=== PATIENT | male | born 1955 | race Caucasian/White ===

== ENCOUNTER → 2017-09-13 | Outpatient (CLI) | payer MEDICARE, BC ==
[2016-10-21 09:53] VITALS: BMI 35.0
[~2017-09-13] MED LIST: AMOX-559 PO; ASP325 PO; ASPI-757 PO; BACDS PO; BENZ100C26 PO; CARV12.578 PO; CEFU250 PO; CEP500 PO; CIP500 PO; CIPR-214 PO; CIPRO EYE; CLI150 PO; CLIN-75 PO; CYCL10TA29 PO; DEXL60CA6 PO; DIA5 PO; DIAZ-1 PO; DILT180C73 PO; DILT60CA5 PO; FERR325T14 PO; FLUT16SP20 NS; FURO20TA19 PO; GUALA600 PO; HYDR-4309 PO; HYDR12.556 PO; HYDR25TA66 PO; HYPR15DR23 OP; IBUP800T37 PO; IVIG IV; LEVO750T11 PO; LID5T TD; LIDO700A29 TD; LISI1TAB86 PO; LISI20TA29 PO; LOR1 PO; LOR10/500 PO; LOR5/325 PO; LORA-1458 PO; LOT15T TOP; METR-1 PO; MOMR ENA; MORP-23 PO; MORP60TA51 PO; MORS60 PO; MULT-923 PO; OMEP-218 PO; ONDA4TAB PO; OSE75 PO; OXYC-528 PO; OXYC-854 PO; OXYC5TAB38 PO; OXYGEN INH; PAN40 PO; PANT40SU3 PO; PANT40TA65 PO; PEG15DRO5 OP; POTA20PA10 PO; POTA20TA85 PO; PRE10 PO; PRE20 PO; PRED-1 PO; PRED20TA6 PO; SIMV-44 PO; SIMV5TAB56 PO; SUCR1TAB51 PO; SUCR1TAB85 PO; TEST200V IM; VALA100062 PO; [UNRECOGNIZED DRUG - CODE] MC; [UNRECOGNIZED DRUG - CODE] PO; [UNRECOGNIZED DRUG - OTHER]
--- NOTE | 2017-09-13 11:08 | RADIOLOGY IMAGING REPORT ---
FACILITY: [facility] - [place] PATIENT NAME: Marcell Abel : 1955 MR: [id number] V: [id number] EXAM DATE: ORDERING PHYSICIAN: EVANGELINA PARRA TECHNOLOGIST: Location: [facility] Patient: Mracell Abel : 1955 Visit/Account:[id number] Date of Sevice: 09/13/2017 Exam type: CERVICAL SPINE 2 OR 3 VIEW History: Chronic pain syndrome Comparison: . Findings: There is mild disc space narrowing at C4-5 with small anterior syndesmophyte. There is moderate disc space narrowing with small anterior osteophytes at C5-6 and C6-7. There is no demonstration of acute fractures or subluxations or prevertebral soft tissue swelling. IMPRESSION: 1. Spondylotic changes from C4 to C7 although no evidence of acute fractures or subluxations. If pa tient's symptoms persist MR may be helpful Report Dictated By: Louise Odonnell MD at 09/13/2017 11:00 AM Report E-Signed By: Louise Odonnell MD at 09/13/2017 11:04 AM WSN:[email or web address]
== END ==
LOC: RAD 10:12
PROVIDERS: ATTEND Family Medicine
DX: M47.892 Other spondylosis, cervical region (principal)
CPT/HCPCS: 72040

== ENCOUNTER 2017-10-03 16:32 | Emergency (ER) | payer MEDICARE, BC ==
[2016-10-21 09:53] VITALS: Ht 167.6 cm; Wt 99.8 kg
[~2017-10-03] VITALS: Ht 167.6 cm; Wt 99.8 kg
[~2017-10-03 16:32] MED LIST changes: +FERR-53 PO; -FERR325T14 PO
--- NOTE | 2017-10-03 16:42 | ER Report ---
History and Physical Time Seen By MD: 16:41 HPI/ROS CHIEF COMPLAINT: Right hip pain HISTORY OF PRESENT ILLNESS: This is a 62-year-old male who presents to the emergency department for right hip pain. Patient states that out 4 days ago he was twisting and began to fall and felt his right hip dislocate he did however catch himself before he fell to the ground and then he stated that hip did reduce on its own. He's had some pain since then. Then 2 days ago he began using a walker to help with his ambulation then today he said that once again he twisted and felt his right hip dislocate it did however reduce again. Patient states that today's pain is worse than it has been and he is not sure if something is happened to the ligaments or what's going on. Patient decided come in for further evaluation. Patient states he does have known hip "problems " as well as "spinal problems". Patient does have numbness and tingling to the right leg however this is normal for him. Patient denies nausea, vomiting, diarrhea, aches, chills, headaches or urinary symptoms. REVIEW OF SYSTEMS: Constitutional: No fever, no chills. Eyes: No discharge. ENT: No sore throat. Cardiovascular: No chest pain, no palpitations. Respiratory: No cough, no shortness of breath. Gastrointestinal: No abdominal pain, no vomiting. Genitourinary: No hematuria. Musculoskeletal: As above. Skin: No rashes. Neurological: No headache. Allergies: Coded Allergies: No Known Drug Allergies (Unverified , 10/03/17) Home Meds Active Scripts Pantoprazole Sodium (PANTOPRAZOLE SODIUM) 40 Mg Tablet., 40 MG PO BID, #60 TAB Prov:LILA HUSSEIN MD 10/25/16 Reported Medications Hydralazine Hcl (HYDRALAZINE HCL) 25 Mg Tablet, 1 TAB PO TID, #90 10/25/16 Lidocaine (LIDOCAINE) 700 Mg Adh..patch, 1-2 PACK TD QDAY Y for PAIN, #30 10/25/16 Carvedilol (CARVEDILOL) 12.5 Mg Tablet, 12.5 MG PO BID, TAB 02/19/16 Testosterone Cypionate (TESTOSTERONE CYPIONATE) 200 Mg/1 Ml Vial, 200 MG IM EVERY OTHER WK, VIAL 02/19/16 Sucralfate (CARAFATE) 1 Gm Tablet, 2 TAB PO ACHS1, #28 TAB 07/24/14 Mometasone Furoate (NASONEX) 17 Gm [place], 2 PUFF PAUL BID, SPRAY 07/23/14 Lisinopril (LISINOPRIL) 20 Mg Tablet, 20 MG PO DAILY 11/10/13 Diltiazem Hcl (DILT-CD) 240 Mg Cap.er.24h, 240 MG PO QDAY 11/10/13 Furosemide (LASIX) 20 Mg Tablet, 20 MG PO QDAY 11/08/13 Betamethasone/Clotrimazole (Lotrisone) 15 Gm Cr, 0 TOP Q12H Y for DISCOMFORT APPLY TO AFFECTED AREAS 12/22/12 [Ivig] No Conflict Check, 1 EA IV [id number] 07/09/12 Multivitamins W-Minerals (Multiple Vitamins 55 Plus) 1 Tab Tablet, 1 TAB PO DAILY 07/09/12 Oxycodone Hcl/Acetaminophen (Endocet 10-325 Mg Tablet) 1 Tab Tablet, 2 TAB PO Q6 -8H Y 07/09/12 Oxygen (Oxygen) 2 L Inha, 3 L INH DAILY 05/08/12 Morphine Sulfate (Ms Contin) 60 Mg Tabsr, 120 MG PO Q12H, 0 Refills 08/11/11 Potassium Chloride (Klor-Con M20) 20 Meq Tab.prt.sr, 1 TAB PO BID, 0 Refills 08/11/11 Discontinued Reported Medications Lorazepam (LORAZEPAM) 1 Mg Tab, 1 TAB PO BID, TAB 11/10/13 Discontinued Scripts Sucralfate (SUCRALFATE) 1 Gm Tablet, 1 GM PO ACHS1, #120 TAB Prov:LILA HUSSEIN MD 10/25/16 Oseltamivir Phosphate (TAMIFLU) 75 Mg Cap, 75 MG PO DAILY, #5 CAP Prov:LILA HUSSEIN MD 10/25/16 Clindamycin Hcl (CLINDAMYCIN HCL) 150 Mg Capsule, 600 MG PO Q8H, #21 CAPSULE Prov:LILA HUSSEIN MD 10/25/16 Benzonatate (BENZONATATE) 100 Mg Capsule, 200 MG PO TID Y for COUGH, #30 CAPSULE Prov:LILA HUSSEIN MD 10/25/16 Hydrochlorothiazide (HYDROCHLOROTHIAZIDE) 12.5 Mg Capsule, 1 TAB PO DAILY, #30 CAPSULE TAKE ONE CAPSULE BY MOUTH EVERY DAY Prov:LILA HUSSEIN MD 10/25/16 Past Medical/Surgical History Patient has a past medical and surgical history of CHF, tachycardia, arrhythmias , DVTs, hypertension, granulomas, continuous oxygen 4 L nasal cannula, pneumonia , hiatal hernia, epididymitis, right kidney benign mass, prostatitis, degenerative joint disease, sciatica, multiple back injections, arthritis, osteoporosis, spine injuries, bilateral knee replacements, right wrist injury, carpal tunnel, compression fractures, iritis, cardiac catheterization, vasectomy , tonsillectomy. Reviewed Nurses Notes: Yes Hx Smoking: No Smoking Status: Never Smoker Exposure to Second Hand Smoke?: No Hx Substance Use Disorder: No Hx Alcohol Use: No Constitutional Vital Sign - Last 24 Hours 10/03/17 10/03/17 10/03/17 10/03/17 16:39 16:42 17:17 17:47 Temp 98.3 Pulse 70 64 61 Resp 18 B/P (MAP) 135/68 (90) 135/68 Pulse Ox 97 97 97 O2 Delivery Nasal Cannula 10/03/17 10/03/17 10/03/17 10/03/17 18:00 18:02 18:45 19:00 Pulse 63 62 61 B/P (MAP) 118/57 (77) 138/65 (89) Pulse Ox 100 99 98 10/03/17 10/03/17 19:15 19:30 Pulse 60 60 B/P (MAP) 156/78 (104) Pulse Ox 97 99 Physical Exam General Appearance: The patient is alert, has no immediate need for airway protection and no signs of toxicity. Eyes: Pupils equal and round no pallor or injection. ENT, Mouth: Mucous membranes are moist. Respiratory: There are no retractions, lungs are dim but clear to auscultation. Cardiovascular: Regular rate and rhythm, no murmurs, clicks or rubs. Gastrointestinal: Abdomen is soft and non tender, no masses, bowel sounds normal. Neurological: Alert and oriented 4. Moving all extremities. Following all commands. No focal neuro deficit. Skin: Warm and dry, no rashes. Musculoskeletal: Neck is supple non tender. Extremities no obvious deformity to the right hip. Pain to the entire right hip with palpation. Able to lift the left leg off the gurney, able to flex and extend the hip, but increases pain. DIFFERENTIAL DIAGNOSIS: After history and physical exam differential diagnosis was considered for right hip pain, right hip dislocation, right femoral neck fracture, right pelvis fracture. Medical Decision Making EKG/Imaging Imaging PATIENT NAME: Marcell Abel : 1955 MR: [id number] V: [id number] EXAM DATE: ORDERING PHYSICIAN: JUAN BREWER TECHNOLOGIST: [place] [facility] [place] Marcell Abel : 1955 Visit/Account:[id number] Date of Sevice: 10/03/2017 Exam type: HIP RIGHT History: hip pain, possible dislocation Comparison: None. Findings: There is mild narrowing of the right hip joint. There is no evidence of acute fracture or dislocation. No lytic or blastic bone lesion identified. Incidentally noted are spondylotic changes of the visualized lower thoracic spine and mild degenerative changes at the left hip joint IMPRESSION: 1. Mild degenerative changes of both hip joints Spondylotic changes lower lumbar spine Report Dictated By: Louise Odonnell MD at 10/03/2017 5:48 PM Report E-Signed By: Louise Odonnell MD at 10/03/2017 5:50 PM WSN:[email or web address] PATIENT NAME: Marcell Abel : 1955 MR: [id number] V: [id number] EXAM DATE: ORDERING PHYSICIAN: JUAN BREWER TECHNOLOGIST: [place] [facility] [place]: Marcell Abel : 1955 Visit/Account:[id number] Date of Sevice: 10/03/2017 INDICATION: pain, evaluate for fx. DATE: 10/03/2017 7:17 PM. TECHNIQUE: HIP RIGHT W/O CONTRAST. Noncontrast axial CT imaging was performed through the right hip with sagittal and coronal reformats. One of the following dose optimization techniques was utilized in the performance of this exam: Automated exposure control; adjustment of the mA and/or kV according to the patient's size; or use of an iterative reconstruction technique. Specific details can be referenced in the facility's radiology CT exam operational policy. COMPARISON: Hip radiographs of the same day. FINDINGS: There is no fracture or dislocation at the right hip. Moderate degenerative findings with subchondral cystic change and sclerosis of the acetabulum, most notable along the lateral margin of the roof. The imaged portion of the pelvis is intact. Degenerative findings are severe at the L5-S1 facets as well as the L5-S1 disc space. The bladder is distended. Soft tissues are unremarkable. IMPRESSION: No fracture or dislocation at the right hip. Report Dictated By: Nikki Storey MD at 10/03/2017 7:17 PM Report E-Signed By: Nikki Storey MD at 10/03/2017 7:21 PM WSN:[id number] ED Course/Re-evaluation ED Course The patient was admitted to room. A history and physical were obtained. Differential diagnoses were considered. Right hip x-ray showing mild degenerative changes of both hip joints. CT of the right hip showing no fractures or dislocations of the hip moderate degenerative findings. I did review these results with the patient he was relieved that there was no fracture. I also instructed the patient follow-up with his primary care provider tomorrow to try to get outpatient MRI of his right hip. Patient was also encouraged to take his home medications as scheduled. Patient had no other questions or concerns at this time and was discharged home. Decision to Disposition Date: Oct 03, 2017 Decision to Disposition Time: 19:44 Depart Departure Latest Vital Signs Vital Signs Date Time Temp Pulse Resp B/P (MAP) Pulse Ox O2 Delivery O2 Flow Rate FiO2 10/03/17 19:30 60 156/78 (104) 99 10/03/17 16:42 98.3 18 Nasal Cannula Impression: Primary Impression: Right hip pain Condition: Condition Unchanged Disposition: HOME OR SELF-CARE Referrals: EVANGELINA PARRA MD (PCP) 1 Day Patient Instructions: Hip Pain (ED) Additional Instructions: Drink plenty of water. Get plenty of rest. Continue taking your current medications. Call Dr. Parra tomorrow morning to see if a can schedule an outpatient MRI for your right hip. You can alternate ice and heat for the discomfort. May return to the emergency department for any other concerns or worsening symptoms. JUAN BREWER [employer]ER-BC Oct 03, 2017 16:42
--- NOTE | 2017-10-03 17:54 | RADIOLOGY IMAGING REPORT ---
FACILITY: [facility] [place]IENT NAME: Marcell Abel : 1955 MR: [id number] V: [id number] EXAM DATE: ORDERING PHYSICIAN: JUAN BREWER TECHNOLOGIST: Location: [facility] Patient: Marcell Abel : 1955 Visit/Account:[id number] Date of Sevice: 10/03/2017 Exam type: HIP RIGHT History: hip pain, possible dislocation Comparison: None. Findings: There is mild narrowing of the right hip joint. There is no evidence of acute fracture or dislocatio n. No lytic or blastic bone lesion identified. Incidentally noted are spondylotic changes of the vi sualized lower thoracic spine and mild degenerative changes at the left hip joint IMPRESSION: 1. Mild degenerative changes of both hip joints Spondylotic changes lower lumbar spine Report Dictated By: Louise Odonnell MD at 10/03/2017 5:48 PM Report E-Signed By: Louise Odonnell MD at 10/03/2017 5:50 PM WSN:[email or web address]
--- NOTE | 2017-10-03 19:26 | RADIOLOGY IMAGING REPORT ---
FACILITY: [facility] PATIENT NAME: Marcell Abel : 1955 MR: [id number] V: [id number] EXAM DATE: ORDERING PHYSICIAN: JUAN BREWER TECHNOLOGIST: [place] [facility] [place] Patient: Marcell Abel : 1955 Visit/Account:[id number] Date of Sevice: 10/03/2017 INDICATION: pain, evaluate for fx. DATE: 10/03/2017 7:17 PM. TECHNIQUE: HIP RIGHT W/O CONTRAST. Noncontrast axial CT imaging was performed through the right hip w ith sagittal and coronal reformats. One of the following dose optimization techniques was utilized in the performance of this exam: Automated exposure control; adjustment of the mA and/or kV according t o the patient's size; or use of an iterative reconstruction technique. Specific details can be refe renced in the facility's radiology CT exam operational policy. COMPARISON: Hip radiographs of the same day. FINDINGS: There is no fracture or dislocation at the right hip. Moderate degenerative findings with s ubchondral cystic change and sclerosis of the acetabulum, most notable along the lateral margin of th e roof. The imaged portion of the pelvis is intact. Degenerative findings are severe at the L5-S1 fac ets as well as the L5-S1 disc space. The bladder is distended. Soft tissues are unremarkable. IMPRESSION: No fracture or dislocation at the right hip. Report Dictated By: Nikki Storey MD at 10/03/2017 7:17 PM Report E-Signed By: Nikki Storey MD at 10/03/2017 7:21 PM WSN:[id number]
[2017-10-03 19:30] VITALS: BP 156/78
== END 2017-10-03 19:53 | disposition home or self-care (01) ==
LOC: ER 16:47
DX: M25.551 Pain in right hip (principal); W18.30XA Fall on same level, unspecified, initial encounter
CPT/HCPCS: 99282

== ENCOUNTER 2017-10-09 09:54 | Outpatient (RCR) | payer MEDICARE, BC ==
[2016-10-21 09:53] VITALS: BMI 35.0
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
--- NOTE | 2017-11-10 16:37 | PT PLAN OF CARE ---
Physician: Sathish Meek MD Patient is being seen: for examination only Therapist: Eliezer Wills, PT, DPT Medical Diagnosis: neck pain Treatment Diagnosis: same Date of Onset: 09/11/15 Date of Initial Evaluation: 10/09/17 Date patient was last seen: 10/17/17 Number of treatments: 1 Number of cancellations/No shows: 1 INTERVENTIONS: Manual Therapy/STM/MET Strengthening/condition Range of Motion Spinal Stabilization Work Hardening/Cond Stretching Neuromuscular Re-ed Closed Chain Program Posture/Body mechanics Home Exercise Program Therapeutic Activities GOALS: 2 weeks: Pt will demonstrate centralized cervical neck pain to improve function or QOL. 4 weeks: Pt will demonstrate full cervical AROM in all directions to improve function and QOL. 6 weeks: Pt will demonstrate full cervical AROM in all directions with normal end feels to improve function and QOL. PATIENT'S GOAL: improve neck pain and mobility Status of Patient's Goals: Unknown Patient Compliance: Poor Prognosis: Excellent Reasons for discontinuing therapy: This is a discharge note for Marcell Abel. He demonstrated a positive prognosis during the examination, however, he no showed his follow up visit and will not return calls. As a result , he will be discharged from PT. Posture: He demonstrates B rounded shoulders, thoracic kyphosis, and decreased lumbar lordosis. ROM: Cervical AROM: protrusion: major loss of motion with pain, retraction: major loss of motion with pain, lateral flexion R: major loss of motion with pain, extension: moderate loss of motion with pain, lateral flexion L: moderate loss of motion with pain, rotation R and L: moderate loss of motion with pain, flexion: NIL of movement with pain. Strength: Myotones: C2-T1: Intact; equal bilaterally Palpation: TTP: occiput to C7 on spinous process, on facet processes, and UT ( radiating pain). Special Tests: Repeated RET: pain symptoms during the test and worse following the test. Repeated flexion: pain symptoms during the test and same following the test. Repeated EXT: pain symptoms during the test and better (centralizing ) following the test. Repeated RET EXT: pain symptoms during testing and worse following. If you have any questions, please contact to me at [phone]. Thank you, Eliezer Wills, PT, DPT [facility]
== END 2017-10-09 18:00 | disposition home or self-care (01) ==
LOC: PT 09:54
PROVIDERS: ATTEND Family Medicine
DX: M54.2 Cervicalgia (principal); R51 Headache; R20.2 Paresthesia of skin
CPT/HCPCS: 97162

== ENCOUNTER → 2017-10-13 | Outpatient (CLI) | payer MEDICARE, BC ==
[2016-10-21 09:53] VITALS: BMI 35.0
--- NOTE | 2017-10-13 12:23 | RADIOLOGY IMAGING REPORT ---
FACILITY: [facility] PATIENT NAME: Marcell Abel : 1955 MR: [id number] V: [id number] EXAM DATE: ORDERING PHYSICIAN: EVANGELINA PARRA TECHNOLOGIST: Location: [facility] - [place] Patient: Marcell Abel : 1955 Visit/Account:[id number] Date of Sevice: 10/13/2017 MRI pelvis and left hip Indication: Hip pain. Recent injury. Comparison: Exam is reviewed in conjunction with today's right hip MRI. Technique: Coronal T1-weighted, STIR, proton density, axial STIR were obtained through the whole pelv is. Sagittal and coronal proton density fat-saturated images were obtained through the left hip as we ll. Findings: With respect to the proximal femora, there is no evidence of proximal femur fracture, stress reaction or avascular necrosis. There are suspected scattered islands of red marrow involving the proximal fe ambriz, the bony pelvis and sacrum. No marrow infiltrating lesion of the pelvis or sacrum. There is ext ensive degenerative disc disease of the low lumbar spine most severe at L5-S1. This is incompletely e valuated. The larger [id number]-[id number] images demonstrate symmetric bilateral hip joint osteoarthritis of moderate severity. No significant hip joint effusion. Dedicated smaller [id number]-[id number]-bavg images through the left hip confirm the presence of osteoarthritis wi th chondrosis most pronounced anteriorly and superolaterally. Punctate areas of subchondral edema are seen within the acetabulum. There is evidence of left hip acetabular labral degeneration. Labrum rashmi ears somewhat elongated with intrasubstance signal. Along the posterior margin of the joint space, th ere is a lobulated cyst identified most consistent with a para labral cyst in the setting of an under lying acetabular labral tear. With respect to the left pelvic musculature, there is mild gluteus medius and gluteus minimus inserti onal tendinopathy. No high-grade tear or avulsion. No myotendinous strain. There is trace associated greater trochanteric bursitis. The left common hamstring tendon origin is maintained. The left-sided short adductors and the left iliopsoas insertions are maintained. See today's right hip MRI report fo r further description of the right pelvic musculature. Within the pelvis, no free fluid identified. IMPRESSION: 1. Moderate severity left hip joint osteoarthritis. 2. Left hip acetabular labral degeneration with a suspected superolateral acetabular labral tear post eriorly with an associated lobulated para labral cyst. 3. Extensive degenerative disc disease of the low lumbar spine. 4. Gluteal insertional tendinopathy on the left greater trochanter without tear. There is trace assoc iated greater trochanteric bursitis. 5. Suspected islands of red marrow conversion within the visualized osseous structures. This is not s pecific and can be seen with underlying anemias. Report Dictated By: Kam Luong at 10/13/2017 12:08 PM Report E-Signed By: Kam Luong at 10/13/2017 12:20 PM WSN:[id number]
--- NOTE | 2017-10-13 12:31 | RADIOLOGY IMAGING REPORT ---
FACILITY: [facility] - [place] PATIENT NAME: Marcell Abel : 1955 MR: [id number] V: [id number] EXAM DATE: ORDERING PHYSICIAN: EVANGELINA PARRA TECHNOLOGIST: Location: [facility] - [place] Patient: Marcell Abel : 1955 Visit/Account:[id number] Date of Sevice: 10/13/2017 MRI pelvis and right hip Indication: Hip pain. Recent injury. Comparison: Exam is reviewed in conjunction with today's left hip MRI. Technique: Coronal T1-weighted, STIR, proton density, axial STIR were obtained through the whole pelv is. Sagittal and coronal proton density fat-saturated images were obtained through the right hip as w ell. Findings: With respect to the proximal femora, there is no evidence of proximal femur fracture, stress reaction or avascular necrosis. There are suspected scattered islands of red marrow involving the proximal fe ambriz, the bony pelvis and sacrum. No marrow infiltrating lesion of the pelvis or sacrum. There is ext ensive degenerative disc disease of the low lumbar spine most severe at L5-S1. This is incompletely e valuated. The larger [id number] images demonstrate symmetric bilateral hip joint osteoarthritis of moderate severity. No significant hip joint effusion. Dedicated smaller [id number]-ib-[id number] images through the right hip confirm the presence of osteoarthritis w ith fairly extensive chondrosis and with osteophyte production. There is elongation and intrasubstanc e signal involving the acetabular labrum diffusely compatible with labral degeneration. Focal, lobula kenton T2 signal is seen within and extending from the superolateral labrum compatible with underlying p sheba labral cyst formation and focal labral tearing. With respect to the right pelvic musculature, there is mild to moderate gluteus medius and gluteus mi nimus insertional tendinopathy. There is partial-thickness tearing of the gluteus minimus tendon at t he insertion. No rupture. No myotendinous strain. There is edema within the subcutaneous tissues over lying the right hip most pronounced at the level of the greater trochanter. This may be related to ed shiraz or bruising given the reported recent fall. No well-defined fluid collection or hematoma is seen. There is trace associated greater trochanteric bursitis. The right common hamstring tendon origin is maintained. The right-sided short adductors and the right iliopsoas insertions are maintained. See lisa shultz's left hip MRI report for further description of the left pelvic musculature. Within the pelvis, no free fluid identified. IMPRESSION: 1. Moderate severity right hip joint osteoarthritis. 2. Right hip acetabular labral degeneration with a suspected superolateral acetabular labral tear wit h an associated lobulated para labral cyst. 3. Extensive degenerative disc disease of the low lumbar spine. 4. Gluteal insertional tendinopathy on the right greater trochanter with partial thickness tearing of the gluteus medius minimus at the insertion.. There is trace associated greater trochanteric bursiti s. 5. Suspected islands of red marrow conversion within the visualized osseous structures. This is not s pecific and can be seen with underlying anemias. 6. Edema within the subcutaneous tissues overlying the right hip. No well-defined fluid collection or hematoma identified. Report Dictated By: Kam Luong at 10/13/2017 12:20 PM Report E-Signed By: Kam Luong at 10/13/2017 12:27 PM WSN:[id number]
== END ==
LOC: MRI 03:03
PROVIDERS: ATTEND Family Medicine
DX: M16.0 Bilateral primary osteoarthritis of hip (principal); M51.36 Other intervertebral disc degeneration, lumbar region; M77.8 Other enthesopathies, not elsewhere classified

== ENCOUNTER 2017-10-19 08:57 | Outpatient (RCR) | payer MEDICARE, BC ==
[2016-10-21 09:53] VITALS: BMI 35.0
[2017-08-24 10:44] VITALS: BP 161/84
[2017-08-24] MEDS: diphenhydrAMINE 25 MG CAP PO PRN (10:50)
[2017-08-24] MEDS: ACETAMINOPHEN 325 MG TAB PO PRN (10:51)
[2017-08-24] MEDS: NS(*) 0.9% 100 ML BAG 100 ML IVPB PRN (10:51)
[2017-09-21] MEDS: NS(*) 0.9% 100 ML BAG 100 ML IVPB PRN (09:17)
[2017-09-21] MEDS: diphenhydrAMINE 25 MG CAP PO PRN (09:18)
[2017-09-21] MEDS: ACETAMINOPHEN 325 MG TAB PO PRN (09:18)
[~2017-10-19 08:57] MED LIST changes: +DEXTROSE 5%(*) 100 ML BAG 100 ML IVPB PRN; +IMMU GLOB(IGG) 10GR/100ML VIAL 40 GR in EMPTY EVACUATED CONT 0 ML IV ONE; +LIDOCAINE/SOD BICARB 8.4% SYR ID PRN; +[UNRECOGNIZED DRUG - MIXTURE] IV ONE
[2017-10-19 09:23] VITALS: BP 146/88
[2017-10-19] MEDS: ACETAMINOPHEN 325 MG TAB PO PRN (09:26)
[2017-10-19] MEDS: diphenhydrAMINE 25 MG CAP PO PRN (09:26)
[2017-10-19] MEDS: NS(*) 0.9% 100 ML BAG 100 ML IVPB PRN (09:26)
[2017-10-19] MEDS ORDERED: IMMU GLOB(IGG) 10GR/100ML VIAL 40 GR in EMPTY EVACUATED CONT 0 ML IV ONE (10:00)
[2017-10-19 13:03] VITALS: BP 139/82
== END 2017-11-21 ==
LOC: SPU 08:57
PROVIDERS: ATTEND Specialist
DX: D83.8 Other common variable immunodeficiencies (principal); J01.40 Acute pansinusitis, unspecified; R06.02 Shortness of breath
CPT/HCPCS: 96365; 96366; A9270; J1459; J7050; Q0163

== ENCOUNTER → 2017-12-09 | Outpatient (CLI) | payer MEDICARE, BC ==
[2016-10-21 09:53] VITALS: BMI 35.0
[~2017-12-09] MED LIST changes: -DEXTROSE 5%(*) 100 ML BAG 100 ML IVPB PRN; -IMMU GLOB(IGG) 10GR/100ML VIAL 40 GR in EMPTY EVACUATED CONT 0 ML IV ONE; -LIDOCAINE/SOD BICARB 8.4% SYR ID PRN; -[UNRECOGNIZED DRUG - MIXTURE] IV ONE
== END ==
LOC: LAB 09:46
PROVIDERS: ATTEND Physician Assistant Medical
DX: R94.4 Abnormal results of kidney function studies (principal)
CPT/HCPCS: 36415; 82310; 82374; 82435; 82565; 82947; 84132; 84295; 84520

== ENCOUNTER 2018-02-16 08:59 | Outpatient (RCR) | payer MEDICARE, BC ==
[2016-10-21 09:53] VITALS: BMI 35.0
[2017-11-23 08:56] VITALS: BP 158/90
[2017-11-23] MEDS: ACETAMINOPHEN 325 MG TAB PO PRN (09:13)
[2017-11-23] MEDS: diphenhydrAMINE 25 MG CAP PO PRN (09:14)
[2017-11-23 12:45] VITALS: BP 131/74
[2017-11-23] MEDS: NS(*) 0.9% 100 ML BAG 100 ML IVPB PRN (12:47)
[2017-12-21 08:59] VITALS: BP 149/82
[2017-12-21] MEDS: ACETAMINOPHEN 325 MG TAB PO PRN (09:30)
[2017-12-21] MEDS: NS(*) 0.9% 100 ML BAG 100 ML IVPB PRN (09:30)
[2017-12-21] MEDS: diphenhydrAMINE 25 MG CAP PO PRN (09:30)
[2017-12-21 13:28] VITALS: BP 123/65
[2018-01-19 11:40] VITALS: BP 159/84
[2018-01-19] MEDS: ACETAMINOPHEN 325 MG TAB PO PRN (12:10)
[2018-01-19] MEDS: diphenhydrAMINE 25 MG CAP PO PRN (12:10)
[2018-01-19 15:37] VITALS: BP 138/74
[~2018-02-16 08:59] MED LIST changes: +DEXTROSE 5%(*) 100 ML BAG 100 ML IVPB PRN; +IMMU GLOB(IGG) 10GR/100ML VIAL 40 GR in EMPTY EVACUATED CONT 0 ML IV ONE; +LIDOCAINE/SOD BICARB 8.4% SYR ID PRN
[2018-02-16 09:16] VITALS: BP 132/81
[2018-02-16] MEDS: ACETAMINOPHEN 325 MG TAB PO PRN (09:48)
[2018-02-16] MEDS: diphenhydrAMINE 25 MG CAP PO PRN (09:48)
[2018-02-16] MEDS ORDERED: IMMU GLOB(IGG) 10GR/100ML VIAL 40 GR in EMPTY EVACUATED CONT 0 ML IV ONE (10:00)
[2018-02-16] MEDS: NS(*) 0.9% 100 ML BAG 100 ML IVPB PRN (10:13)
== END 2018-02-20 ==
LOC: SPU 08:59
PROVIDERS: ATTEND Specialist
DX: D83.8 Other common variable immunodeficiencies (principal); J01.40 Acute pansinusitis, unspecified; R06.02 Shortness of breath
CPT/HCPCS: 96365; 96366; A9270; J1459; J7050; Q0163; 96374

== ENCOUNTER 2018-05-24 08:50 | Outpatient (RCR) | payer MEDICARE, BC ==
[2016-10-21 09:53] VITALS: BMI 35.0
[2018-03-16] MEDS: ACETAMINOPHEN 325 MG TAB PO PRN (09:20)
[2018-03-16] MEDS: diphenhydrAMINE 25 MG CAP PO PRN (09:21)
[2018-03-16] MEDS: NS(*) 0.9% 100 ML BAG 100 ML IVPB PRN (09:53)
[2018-03-16 13:49] VITALS: BP 154/110
[2018-04-26 12:30] VITALS: BP 128/64
[2018-04-26] MEDS: ACETAMINOPHEN 325 MG TAB PO PRN (12:46)
[2018-04-26] MEDS: NS(*) 0.9% 100 ML BAG 100 ML IVPB PRN (12:46)
[2018-04-26] MEDS: diphenhydrAMINE 25 MG CAP PO PRN (12:46)
[2018-04-26 15:26] VITALS: BP 144/81
[~2018-05-24 08:50] MED LIST changes: +IMMU GLOB(IGG) 20GR/200ML VIAL 40 GR in EMPTY EVACUATED CONT 0 ML IVPB ONE
[2018-05-24] MEDS: diphenhydrAMINE 25 MG CAP PO PRN (09:11)
[2018-05-24] MEDS: ACETAMINOPHEN 325 MG TAB PO PRN (09:11)
[2018-05-24 09:17] VITALS: BP 135/78
[2018-05-24] MEDS ORDERED: IMMU GLOB(IGG) 20GR/200ML VIAL 40 GR in EMPTY EVACUATED CONT 0 ML IVPB ONE (09:20)
[2018-05-24] MEDS: NS(*) 0.9% 100 ML BAG 100 ML IVPB PRN (09:46)
== END 2018-06-11 ==
LOC: SPU 08:50
PROVIDERS: ATTEND Specialist
DX: D46.9 Myelodysplastic syndrome, unspecified (principal); D53.9 Nutritional anemia, unspecified; Z28.9 Immunization not carried out for unspecified reason; D83.8 Other common variable immunodeficiencies; J01.40 Acute pansinusitis, unspecified; R06.02 Shortness of breath
CPT/HCPCS: 96365; 96366; A9270; J1459; J7050; Q0163

== ENCOUNTER 2018-09-13 08:54 | Outpatient (RCR) | payer MEDICARE, BC ==
[2016-10-21 09:53] VITALS: BMI 35.0
[2018-06-21 09:12] VITALS: BP 154/85
[2018-06-21] MEDS: NS(*) 0.9% 100 ML BAG 100 ML IVPB PRN (09:15)
[2018-06-21] MEDS: diphenhydrAMINE 25 MG CAP PO PRN (09:30)
[2018-06-21] MEDS: ACETAMINOPHEN 325 MG TAB PO PRN (09:31)
[2018-07-19] MEDS: diphenhydrAMINE 25 MG CAP PO PRN (11:03)
[2018-07-19] MEDS: ACETAMINOPHEN 325 MG TAB PO PRN (11:04)
[2018-07-19] MEDS: NS(*) 0.9% 100 ML BAG 100 ML IVPB PRN (11:04)
[2018-07-19 11:12] VITALS: BP 137/80
[2018-08-16 09:05] VITALS: BP 146/77
[2018-08-16] MEDS: diphenhydrAMINE 25 MG CAP PO PRN (09:19)
[2018-08-16] MEDS: ACETAMINOPHEN 325 MG TAB PO PRN (09:20)
[2018-08-16] MEDS: NS(*) 0.9% 100 ML BAG 100 ML IVPB PRN (09:20)
[2018-08-16 12:42] VITALS: BP 150/73
[~2018-09-13 08:54] MED LIST changes: -HYDR-4309 PO; +HYDR-653 PO; -IMMU GLOB(IGG) 10GR/100ML VIAL 40 GR in EMPTY EVACUATED CONT 0 ML IV ONE; +IMMU GLOB(IGG) 20GR/200ML VIAL 200 ML IV ONE
[2018-09-13] MEDS: ACETAMINOPHEN 325 MG TAB PO PRN (09:06)
[2018-09-13] MEDS: diphenhydrAMINE 25 MG CAP PO PRN (09:06)
[2018-09-13] MEDS: NS(*) 0.9% 100 ML BAG 100 ML IVPB PRN (09:07)
[2018-09-13 09:10] VITALS: BP 155/85
[2018-09-13] MEDS ORDERED: IMMU GLOB(IGG) 20GR/200ML VIAL 40 GR in EMPTY EVACUATED CONT 0 ML IVPB ONE (09:10)
== END 2018-09-18 ==
LOC: SPU 08:54
PROVIDERS: ATTEND Specialist
DX: D83.8 Other common variable immunodeficiencies (principal); J01.40 Acute pansinusitis, unspecified; R06.02 Shortness of breath
CPT/HCPCS: 36415; 82784; 96365; 96366; A9270; J1459; J7050; Q0163

== ENCOUNTER → 2018-09-14 | Outpatient (CLI) | payer MEDICARE, BC ==
[2016-10-21 09:53] VITALS: BMI 35.0
[~2018-09-14] MED LIST changes: -DEXTROSE 5%(*) 100 ML BAG 100 ML IVPB PRN; -IMMU GLOB(IGG) 20GR/200ML VIAL 200 ML IV ONE; -IMMU GLOB(IGG) 20GR/200ML VIAL 40 GR in EMPTY EVACUATED CONT 0 ML IVPB ONE; -LIDOCAINE/SOD BICARB 8.4% SYR ID PRN
--- NOTE | 2018-09-14 13:41 | RADIOLOGY IMAGING REPORT ---
FACILITY: [facility] PATIENT NAME: Marcell Abel : 1955 MR: [id number] V: [id number] EXAM DATE: ORDERING PHYSICIAN: EVANGELINA PARRA TECHNOLOGIST: Location: [facility] Patient: Marcell Abel : 1955 Visit/Account:[id number] Date of Sevice: 09/14/2018 Exam type: SHOULDER MIN 2 VIEWS RIGHT History: And right shoulder two months Comparison: Two-view chest January 10, 2017. Findings: Three views of the right shoulder demonstrates no evidence of acute fracture or dislocation.. There are moderate degenerative changes incidentally noted at the right AC joint. Changes were present on the prior chest radiograph. The previously noted pleural-based mass along the lateral aspect the rig ht thorax was better seen on the prior study IMPRESSION: 1. No evidence of acute fractures condition involving the right shoulder Moderate joint changes of the right AC joint Report Dictated By: Louise Odonnell MD at 09/14/2018 1:30 PM Report E-Signed By: Louise Odonnell MD at 09/14/2018 1:37 PM WSN:[email or web address]
== END ==
LOC: RAD 11:41
PROVIDERS: ATTEND Family Medicine
DX: M25.511 Pain in right shoulder (principal)

== ENCOUNTER → 2018-10-05 | Outpatient (CLI) | payer MEDICARE, BC ==
[2016-10-21 09:53] VITALS: BMI 35.0
== END ==
LOC: RESP 19:42
PROVIDERS: ATTEND Family Medicine
DX: G47.33 Obstructive sleep apnea (adult) (pediatric) (principal); G47.36 Sleep related hypoventilation in conditions classified elsewhere; G47.61 Periodic limb movement disorder

== ENCOUNTER → 2018-10-11 | Outpatient (CLI) | payer MEDICARE, BC ==
[2016-10-21 09:53] VITALS: BMI 35.0
--- NOTE | 2018-10-11 15:27 | RADIOLOGY IMAGING REPORT ---
[place] [facility] [place] NAME: Marcell Abel : 1955 MR: [id number] V: [id number] EXAM DATE: ORDERING PHYSICIAN: EVANGELINA PARRA TECHNOLOGIST: Location: [facility] [place] Patient: Marcell Abel : 1955 Visit/Account:[id number] Date of Sevice: 10/11/2018 MRI right shoulder without contrast Indication: Shoulder pain after injury. Comparison: Plain films 09/14/2018 are reviewed. Technique: Multiplanar, multisequence MRI examination is performed of the right shoulder without cont rast. FINDINGS: There is a type 2 acromion with a subacromial spur. There are moderate to severe changes of acromiocl avicular joint osteoarthritis with dorsal ossifications and inferiorly directed distal clavicular ost eophytes. The glenohumeral joint is appropriately aligned. The articular surfaces are maintained. The re is a small to intermediate joint effusion present. Examination of the rotator cuff demonstrates moderate severity supraspinatus insertional tendinopathy . There is high-grade undersurface tearing at the insertion which extends medially as a delaminating type of tear. No full-thickness extension or retracted tear is seen. There is mild severity infraspin atus insertional tendinopathy without discrete tear. The subscapularis insertion demonstrates mild te ndinopathy at the insertion. There is low-grade undersurface tearing at the central insertion. There is felt to be a high-grade tear of the biceps tendon within the joint space. Portions of the tendon a re retracted into the rotator interval and along the inferior margin of the bicipital groove. There is a moderate amount of fluid within the subacromial-subdeltoid bursa. There is atrophy of the teres minor muscle. This is not specific and may reflect sequela of quadrilateral space syndrome. IMPRESSION: 1. High-grade tear and probable rupture of the intra-articular portion of the right shoulder long hea d biceps tendon which is retracted into the rotator interval and the inferior portion of the bicipita l groove. 2. Moderate severity right shoulder supraspinatus insertional tendinopathy with a high-grade undersur face tear at the mid and posterior insertion which extends medially as a delaminating tear. No defini tive full-thickness extension or tendon retraction. 3. Infraspinatus and subscapularis insertional tendinopathy as above. 4. Subacromial-subdeltoid bursitis. 5. Acromioclavicular joint osteoarthritis with inferiorly directed distal clavicular osteophytes whic h may predispose to shoulder impingement. Report Dictated By: Kam Luong at 10/11/2018 3:11 PM Report E-Signed By: Kam Luong at 10/11/2018 3:22 PM WSN:[email or web address]
== END ==
LOC: MRI 12:04
PROVIDERS: ATTEND Family Medicine
DX: M75.111 Incomplete rotator cuff tear or rupture of right shoulder, not specified as traumatic (principal)

== ENCOUNTER 2018-10-23 11:15 | Outpatient (RCR) | payer MEDICARE, BC ==
[2016-10-21 09:53] VITALS: BMI 35.0
--- NOTE | 2018-10-03 07:42 | PT INITIAL EVALUATION ---
MEDICAL DIAGNOSIS: neck pain, R shoulder pain TREATMENT DIAGNOSIS: same DATE OF ONSET: 06/11/18 SUBJECTIVE: Marcell Abel presents to physical therapy with complaints of chronic neck pain and R shoulder pain. He reports that his R shoulder pain was injured when he was getting a 5 gallon bucket out of his seat that he forgot was strapped in and as he tried to lift it he heard a pop and since that incident he has increased pain with R shoulder especially when moving it above 90 degrees in all directions. He rates his resting pain to be 4/10. He rates his pain to be 8/10 when he moves his R shoulder above 90 degrees in any direction and describes the pain to be sharp. He states that he feels like the shoulder is slowly getting better since the injury. He reports that he feels like nothing helps or has been helping with his R shoulder pain. Pain location is R anterior shoulder: LHB, supraspinatus and described as sharp, throbbing, achy. Pain scale is 4 on a ten point pain scale. REHAB PROBLEM LIST: Increased Pain Decreased ROM Decreased Strength Decreased Endurance Decreased Balance Decreased Function Decreased ADL's Decreased Gait PREVIOUS MEDICAL HISTORY: See EMR OCCUPATION: Retired OBJECTIVE: Posture: He demonstrated severe B rounded shoulder, forward head, increased thoracic kyphosis, and decreased lumbar lordosis. ROM: R shoulder AROM: scaption: 90 degrees, flexion: 80 degrees, abduction: 85 degrees. IR and ER: 80 degrees. R shoulder PROM: scaption: 110 degrees, abduction: 110 degrees, flexion: 120 degrees. IR: 80 deg, ER: 90 degrees. He had painful end feels with all motions except for ER. Strength: R shoulder: flexion, scaption, ER: strong and painful. Biceps (LHB) and abduction; weak and painful. IR: strong and painless. Palpation: TTP: over LHB and supraspinatus and infraspinatus insertional point Sensation: Intact; however, he has C6-7 dermatome on R side versus L side; otherwise, they are all equal. Special Tests: Load and shift (negative), moya-Juan, shruthi, manpreet: positive. He demonstrated significant problems with his LHB and feel that his LHB is most injured out of all his shoulder structures: Tendinopathies: infraspinatus and supraspinatus Mobility: Independent Gait: He demonstrated increased lateral trunk movement, increased base of support, decreased velocity, no LOB, decreased pelvic rotation. ASSESSMENT: Marcell will benefit from skilled physical therapy addressing the listed impairments to improve function and QOL. Based on his examination, I am concerned about his LHB as it is the main structure that shows the potential for a full Grade 3 tear, otherwise, it appears based on the signs and symptoms that the RTC structures are classic tendinopathies that will get better with physical therapy treatments. He he does not show any improvements in 2-4 weeks we will refer back for more imaging. Short Term Goals 6 weeks: Pt will demonstrate full PROM-AROM of his R shoulder in all directions to improve function and QOL. 8 weeks: Pt will demonstrate significant improvement in RTC and periscapular strength to improve function and QOL. Patient's Goals reduce pain, improve motion PLAN: Patient to be seen for Manual Therapy/STM/MET Strengthening/condition Range of Motion Spinal Stabilization Work Hardening/Cond Stretching Iontophoresis Neuromuscular Re-ed Closed Chain Program Posture/Body mechanics Gait Trg/Balance Trg Home Exercise Program Therapeutic Activities 2x/Week for 2 Months If you have any questions, comments, or concerns about this report or plan, please contact me at . Thank you, Eliezer Wills, PT, DPT MTDD
== END 2018-10-23 18:00 | disposition home or self-care (01) ==
LOC: PT 11:15
PROVIDERS: ATTEND Family Medicine
DX: M25.511 Pain in right shoulder (principal); M54.2 Cervicalgia
CPT/HCPCS: 97010; 97110; 97140; 97162; G0283

== ENCOUNTER → 2018-10-25 | Outpatient (CLI) | payer MEDICARE, BC ==
[2016-10-21 09:53] VITALS: BMI 35.0
== END ==
LOC: US 00:46
PROVIDERS: ATTEND Family Medicine
DX: I35.0 Nonrheumatic aortic (valve) stenosis (principal)
CPT/HCPCS: 93306

== ENCOUNTER → 2018-10-25 | Outpatient (CLI) | payer MEDICARE, BC ==
[2016-10-21 09:53] VITALS: BMI 35.0
== END ==
LOC: RESP 21:53
PROVIDERS: ATTEND Family Medicine
DX: G47.33 Obstructive sleep apnea (adult) (pediatric) (principal); G47.31 Primary central sleep apnea; G47.36 Sleep related hypoventilation in conditions classified elsewhere; G47.61 Periodic limb movement disorder
CPT/HCPCS: 93306

== ENCOUNTER 2019-01-03 08:49 | Outpatient (RCR) | payer MEDICARE, BC ==
[2016-10-21 09:53] VITALS: Wt 108.0 kg
[2018-10-11 09:04] VITALS: BP 154/85
[2018-10-11] MEDS: NS(*) 0.9% 100 ML BAG 100 ML IVPB PRN (09:14)
[2018-10-11] MEDS: diphenhydrAMINE 25 MG CAP PO PRN (09:18)
[2018-10-11] MEDS: ACETAMINOPHEN 325 MG TAB PO PRN (09:19)
[2018-11-08 09:04] VITALS: BP 163/86
[2018-11-08] MEDS: diphenhydrAMINE 25 MG CAP PO PRN (09:20)
[2018-11-08] MEDS: NS(*) 0.9% 100 ML BAG 100 ML IVPB PRN (09:20)
[2018-11-08] MEDS: ACETAMINOPHEN 325 MG TAB PO PRN (09:20)
[2018-11-08 12:54] VITALS: BP 104/54
[2018-12-06 10:35] VITALS: BP 152/78
[2018-12-06] MEDS: ACETAMINOPHEN 325 MG TAB PO PRN (11:03)
[2018-12-06] MEDS: NS(*) 0.9% 100 ML BAG 100 ML IVPB PRN (11:03)
[2018-12-06] MEDS: diphenhydrAMINE 25 MG CAP PO PRN (11:03)
[~2019-01-03 08:49] MED LIST changes: +DEXTROSE 5%(*) 100 ML BAG 100 ML IVPB PRN; +IMMU GLOB(IGG) 20GR/200ML VIAL 200 ML IV ONE; +IMMU GLOB(IGG) 20GR/200ML VIAL 40 GR in EMPTY EVACUATED CONT 0 ML IVPB ONE; +LIDOCAINE/SOD BICARB 8.4% SYR ID PRN
[2019-01-03 08:54] VITALS: BP 160/78
[2019-01-03] MEDS: NS(*) 0.9% 100 ML BAG 100 ML IVPB PRN (09:12)
[2019-01-03] MEDS: ACETAMINOPHEN 325 MG TAB PO PRN (09:12)
[2019-01-03] MEDS: diphenhydrAMINE 25 MG CAP PO PRN (09:12)
[2019-01-03] MEDS ORDERED: IMMU GLOB(IGG) 20GR/200ML VIAL 200 ML IV ONE ×2 (10:00→11:00)
[2019-01-03 12:26] VITALS: BP 126/71
== END 2019-01-08 ==
LOC: SPU 08:49
PROVIDERS: ATTEND Specialist
DX: D83.8 Other common variable immunodeficiencies (principal); J01.40 Acute pansinusitis, unspecified; R06.02 Shortness of breath
CPT/HCPCS: 73221; 96365; 96366; A9270; J1459; J7050; Q0163

== ENCOUNTER → 2019-01-11 | Outpatient (CLI) | payer MEDICARE, BC ==
[2016-10-21 09:53] VITALS: BMI 35.0
[~2019-01-11] MED LIST changes: -DEXTROSE 5%(*) 100 ML BAG 100 ML IVPB PRN; -IMMU GLOB(IGG) 20GR/200ML VIAL 200 ML IV ONE; -IMMU GLOB(IGG) 20GR/200ML VIAL 40 GR in EMPTY EVACUATED CONT 0 ML IVPB ONE; -LIDOCAINE/SOD BICARB 8.4% SYR ID PRN
--- NOTE | 2019-01-11 12:02 | RADIOLOGY IMAGING REPORT ---
FACILITY: [facility] PATIENT NAME: Marcell Abel : 1955 MR: [id number] V: [id number] EXAM DATE: ORDERING PHYSICIAN: EVANGELINA PARRA TECHNOLOGIST: Location: Patient: Marcell Abel : 1955 Visit/Account:[id number] Date of Sevice: 01/11/2019 L-SPINE 2 OR 3 VIEW Indication: Pain in lower back Comparison: Lumbar spine radiograph 04/19/2017 Findings: There is disc space narrowing and anterior osteophytes at all levels of the lumbar spine. There is multilevel facet arthropathy. IMPRESSION: Multilevel degenerative disc disease change and facet arthropathy. This is not significa ntly changed from 04/19/2017. Report Dictated By: Hernandez Botello at 01/11/2019 11:52 AM Report E-Signed By: Hernandez Botello at 01/11/2019 11:56 AM WSN:[email or web address]
--- NOTE | 2019-01-11 12:02 | RADIOLOGY IMAGING REPORT ---
FACILITY: [facility] PATIENT NAME: Marcell Abel : 1955 MR: [id number] V: [id number] EXAM DATE: ORDERING PHYSICIAN: EVANGELINA PARRA TECHNOLOGIST: [place] [facility] [place] : 1955 Visit/Account:[id number] Date of Sevice: 01/11/2019 XR THORACIC SPINE 3 V Indication: Thoracic spine pain, history of fractures. Comparison: None Findings: There is moderate kyphosis in the midthoracic spine. Anterior compression changes are seen at T9, of indeterminate age. Anterior osteophytes are seen in the midthoracic and lower thoracic sp ine. IMPRESSION: 1. Multilevel thoracic spondylosis. 2. Mild superior endplate compression changes T9, indeterminate age. Report Dictated By: Hernandez Botello at 01/11/2019 11:51 AM Report E-Signed By: Hernandez Botello at 01/11/2019 11:52 AM WSN:[email or web address]
== END ==
LOC: RAD 09:51
PROVIDERS: ATTEND Family Medicine
DX: M47.814 Spondylosis without myelopathy or radiculopathy, thoracic region (principal)
CPT/HCPCS: 72072; 72100

== ENCOUNTER → 2019-01-21 | Outpatient (CLI) | payer MEDICARE, BC ==
[2016-10-21 09:53] VITALS: BMI 35.0
--- NOTE | 2019-01-21 11:28 | RADIOLOGY IMAGING REPORT ---
FACILITY: [facility] PATIENT NAME: Marcell Abel : 1955 MR: [id number] V: [id number] EXAM DATE: ORDERING PHYSICIAN: EVANGELINA PARRA TECHNOLOGIST: Location: [facility] [place] Patient: Marcell Abel : 1955 Visit/Account:[id number] Date of Sevice: 01/21/2019 DEXA Scan Clinical history: Osteoporosis screening. Comparison: None. LUMBAR SPINE: Bone mineral density (BMD) measured in the lumbar spine correlates with a T-score of 4.6 and a Z-scor e of 4.3 which is normal as defined by the World Health Organization. The corresponding risk of fra cture in the lumbar spine is not increased compared with a young adult reference population. Note th at degenerative changes may falsely increase bone density. LEFT FEMORAL NECK: Bone mineral density (BMD) measured in the femoral neck region correlates with a T-score of -0.5 and a Z-score of 0.0 which is normal as defined by the World Health Organization. Bone mineral density (BMD) measured in the femoral neck is 1.004 g/cm2. LEFT TOTAL HIP: Total hip bone mineral density (BMD) correlates with a T-score of -0.1 and a Z-score of 0.0 which is normal as defined by the World Health Organization. The corresponding risk of fracture in the hip is not increased compared with a young adult reference population. IMPRESSION: 1. Lumbar spine: Normal bone density. 2. Left femoral neck: Normal bone density. 3. Left femoral neck: Bone Mineral Density is 1.004 g/cm2. 4. Left total hip: Normal bone density. FRAX WHO Fracture Risk Assessment Tool link: <http://www.shef.ac.uk/FRAX/tool.jsp?locationValue=9> PLEASE NOTE: 1) The World Health Organization defines low BMD as follows: T-score Normal > -1 Osteopenia < -1 and > -2.5 Osteoporosis < -2.5 without fractures Established osteoporosis < -2.5 with fractures 2) In general, you may wish to consider: Diagnosis Treatment Follow-up DEXA Normal BMD Prevention 2-3 years Osteopenia Prevention/therapy 1-2 years Osteoporosis Therapy Yearly 3) Fracture risk estimated from the T-score is more accurate for vertebral fractures (often spontane ous) than for hip fractures. Report Dictated By: Adam Newman MD at 01/21/2019 11:23 AM Report E-Signed By: Adam Newman MD at 01/21/2019 11:24 AM WSN:[email or web address]
== END ==
LOC: RAD 00:49
PROVIDERS: ATTEND Family Medicine
DX: S22.070A Wedge compression fracture of T9-T10 vertebra, initial encounter for closed fracture (principal)
CPT/HCPCS: 77080

== ENCOUNTER 2019-04-24 08:53 | Outpatient (RCR) | payer MEDICARE, BC ==
[2016-10-21 09:53] VITALS: Wt 106.3 kg
[2019-01-30 14:09] VITALS: BP 164/87
[2019-01-30] MEDS: ACETAMINOPHEN 325 MG TAB PO PRN (14:38)
[2019-01-30] MEDS: diphenhydrAMINE 25 MG CAP PO PRN (14:38)
[2019-01-30] MEDS: NS(*) 0.9% 100 ML BAG 100 ML IVPB PRN (14:58)
[2019-01-30 17:16] VITALS: BP 158/93
[2019-02-28] MEDS: diphenhydrAMINE 25 MG CAP PO PRN (09:16)
[2019-02-28] MEDS: NS(*) 0.9% 100 ML BAG 100 ML IVPB PRN (09:16)
[2019-02-28] MEDS: ACETAMINOPHEN 325 MG TAB PO PRN (09:16)
[2019-02-28 09:21] VITALS: BP 164/81
[2019-02-28 11:59] VITALS: BP 124/63
[2019-03-28 12:56] VITALS: BP 147/76
[2019-03-28] MEDS: NS(*) 0.9% 100 ML BAG 100 ML IVPB PRN (13:05)
[2019-03-28] MEDS: ACETAMINOPHEN 325 MG TAB PO PRN (13:10)
[2019-03-28] MEDS: diphenhydrAMINE 25 MG CAP PO PRN (13:10)
[2019-03-28] MEDS: IMMUNE GLOBUL G/GLY/IGA 20 GM 200 ML IV SCH ×2 (13:34→15:08)
[2019-03-28 16:30] VITALS: BP 124/62
[~2019-04-24 08:53] MED LIST changes: +DEXTROSE 5%(*) 100 ML BAG 100 ML IVPB PRN; +IMMU GLOB(IGG) 20GR/200ML VIAL 200 ML IV ONE; +LIDOCAINE/SOD BICARB 8.4% SYR ID PRN
[2019-04-24] MEDS: ACETAMINOPHEN 325 MG TAB PO PRN (09:13)
[2019-04-24] MEDS: diphenhydrAMINE 25 MG CAP PO PRN (09:13)
[2019-04-24] MEDS: NS(*) 0.9% 100 ML BAG 100 ML IVPB PRN (09:14)
[2019-04-24 09:15] VITALS: BP 153/78
[2019-04-24] MEDS ORDERED: IMMU GLOB(IGG) 20GR/200ML VIAL 200 ML IV ONE ×2 (09:20)
[2019-04-24 12:47] VITALS: BP 127/68
== END 2019-04-29 ==
LOC: SPU 08:53
PROVIDERS: ATTEND Specialist
DX: D83.8 Other common variable immunodeficiencies (principal); J01.40 Acute pansinusitis, unspecified; R06.02 Shortness of breath
CPT/HCPCS: 96365; 96366; A9270; J1459; J1561; J7050; Q0163